=== PATIENT | male | born 1990 | race Caucasian/White ===

== ENCOUNTER 2020-06-14 21:03 | Emergency (ER) | payer OTHER ==
[2020-06-14 21:09] VITALS: BP 173/90; PULSE 100; RESP 20; TEMP 98.4
--- NOTE | 2020-06-14 21:25 | ED ---
Lower Extremity Injury HPI - General Chief Complaint: Extremity Injury, Lower Stated Complaint: R Leg Injury,Possible Blood Clot Time Seen by Provider: 06/14/20 21:10 Source: patient, family Mode of arrival: wheelchair Limitations: no limitations - History of Present Illness Initial Comments: 30-year-old male patient presents to the emergency department today for evaluation of swelling and discoloration to the right lower extremity. Patient states that 2 months ago he fractured his patella while running. Patient states he has been healing well but then started to have discoloration to the right leg whenever he stands up. Patient states the pain hasn't been too bad. He denies numbness or tingling to the extremity. States that today when he woke up the swelling was quite significant in the leg which was unusual during his recovery. He denies any significant pain at this time. Patient denies any recent rash, fever, chills, cough, shortness of breath, chest pain, abdominal pain, nausea, vomiting, diarrhea, constipation, back pain, numbness, tingling, dizziness, weakness, hematuria, dysuria, urinary urgency, urinary frequency, headache, visual changes, or any other complaints. - Related Data Allergies Allergy/AdvReac Type Severity Reaction Status Date / Time No Known Allergies Allergy Verified 06/14/20 21:09 Review of Systems ROS Statement: Those systems with pertinent positive or pertinent negative responses have been documented in the HPI. ROS Other: All systems not noted in ROS Statement are negative. Past Medical History Additional Past Medical History / Comment(s): spleen injury Past Surgical History: No Surgical Hx Reported Past Psychological History: No Psychological Hx Reported Smoking Status: Never smoker Past Alcohol Use History: Occasional Past Drug Use History: None Reported General Exam Limitations: no limitations General appearance: alert, in no apparent distress, other (This is a well- developed, well-nourished adult male patient in no acute distress. Vital signs upon presentation are temperature 98.4F, pulse 100, respirations 20, blood pressure 173/90, pulse ox 100% on room air.) Respiratory exam: Present: normal lung sounds bilaterally. Absent: respiratory distress, wheezes, rales, rhonchi, stridor Cardiovascular Exam: Present: regular rate, normal rhythm, normal heart sounds. Absent: systolic murmur, diastolic murmur, rubs, gallop, clicks Extremities exam: Present: full ROM, normal capillary refill, other (There is mild generalized swelling noted to the right leg. There is mild purplish discoloration with slow cap refill to the right leg. Pedal and posttibial pulses intact. It is warm to touch.). Absent: normal inspection, tenderness, pedal edema, joint swelling, calf tenderness Neurological exam: Present: alert, oriented X3, CN II-XII intact Psychiatric exam: Present: normal affect, normal mood Skin exam: Present: warm, dry, intact, normal color. Absent: rash Course Vital Signs 06/14/20 21:05 Temperature 98.4 F Pulse Rate 100 Respiratory 20 Rate Blood Pressure 173/90 O2 Sat by Pulse 100 Oximetry Medical Decision Making - Medical Decision Making 30-year-old male patient presents to the emergency department today for evaluation of right lower extremity swelling and discoloration. Physical examination did reveal trace edema to the right lower extremity. Pedal and posttibial pulses intact. Ultrasound of the right leg was obtained and was negative. Patient does have an appointment with his ultrasound specialist on Tuesday he is urged to follow-up with his doctor as planned. Instructed to follow-up with his primary care physician for recheck in 1-2 days. Return parameters discussed in detail. They verbalize understanding and agree with this plan. - Radiology Data Radiology results: report reviewed, image reviewed Ultrasound of the right lower extremity is obtained. Report was reviewed in its entirety. Impression by Dr. Banda shows no evidence of deep vein thrombosis in the right lower extremity. Disposition Clinical Impression: Right leg swelling Disposition: HOME SELF-CARE Condition: Good Instructions (If sedation given, give patient instructions): Leg Edema (ED) Additional Instructions: Follow-up with ultrasound specialist for further evaluation as soon as possible. Follow up through primary care physician for recheck in 1-2 days. Return to the emergency department immediately for any new, worsening, or concerning symptoms. Is patient prescribed a controlled substance at d/c from ED?: No Referrals: Hannah Del Toro DO [Primary Care Provider] - 1-2 days Time of Disposition: 22:26
--- NOTE | 2020-06-14 22:18 | US ---
EXAM: US Duplex Right Lower Extremity Veins CLINICAL HISTORY: ITS.REASON US Reason: Right lower extremity swelling discoloration TECHNIQUE: Real-time duplex ultrasound scan of the right lower extremity veins integrating B-mode two-dimensional vascular structure, Doppler spectral analysis, color flow Doppler imaging and compression. COMPARISON: None. FINDINGS: Deep veins: Unremarkable. No DVT in the visualized common femoral, femoral, proximal deep femoral or popliteal veins. The veins demonstrate normal color flow, are normally compressible, with normal phasic flow and/or augmentation response. Superficial veins: Unremarkable. No thrombus in the visualized great saphenous vein. Soft tissues: No acute findings. No popliteal cyst. IMPRESSION: No evidence of deep vein thrombosis in the right lower extremity.
== END 2020-06-14 22:43 | disposition home or self-care (01) ==
LOC: EC 21:03
DX: M79.89 Other specified soft tissue disorders (principal); R23.4 Changes in skin texture; R60.0 Localized edema
CPT/HCPCS: 99283